=== PATIENT | female | born 1980 | race Caucasian/White ===

== ENCOUNTER 2023-10-27 16:24 | Observation (INO) ==
--- NOTE | 2023-10-27 17:51 | Emergency Department Note ---
History of Present Illness General Chief complaint: Skin Problem Stated complaint: ANGELY ANAL ABCESS, NEEDS DRAINED, RECTAL PAIN Time Seen by Provider: 10/27/23 17:50 History of Present Illness Maximum Pain Intensity: 7 NAME: HAYLEE RODRIGUEZ AGE: 43 SEX: F : 1980 ARRIVES VIA: Walk-In INFORMANT: Patient ED PROVIDER(S): ISRRAEL Belcher, Luís Tadeo DO The patient is a pleasant well-appearing 43-year-old female who arrives to the emergency department for evaluation of a perirectal abscess. She reports she was evaluated by her primary care provider in [place] at [facility] who placed her on oral antibiotics on Wednesday. She reports at that time it was a small nodular cyst, and since then has grown significantly. She reports she contacted them today for pain medication, and they called in hydrocodone. She states the hydrocodone is not helping, and the area has become very erythematous and tender to palpation. She reports a previous cyst in her right armpit, however states a significant history of infected cysts. She denies any difficulty with bowel or bladder, fever, abdominal pain, or drainage from the site. Home Medications Medication Instructions Recorded Confirmed Type alprazolam 0.25 mg tablet 0.25 mg PO DAILY PRN Anxiety 10/27/23 10/27/23 History bupropion HCl 300 mg 24 hr tablet, 300 mg PO QAM 10/27/23 10/27/23 History extended release hydrocodone 5 mg-acetaminophen 325 1 tab PO Q6 PRN Pain 10/27/23 10/27/23 History mg tablet sulfamethoxazole 800 1 tab PO BID 10/27/23 10/27/23 History mg-trimethoprim 160 mg tablet Allergies Allergy/AdvReac Type Severity Reaction Status Date / Time No Known Allergies Allergy Unverified 10/27/23 22:24 Past Med/Surg History Problem List (Updated 10/28/23 @ 00:34 by ISRRAEL Calderón) Depression with anxiety Perianal abscess (Acute) Social History Smoking Status: Former smoker Tobacco Type: Cigarettes Cigarettes Per Day: 5; Second Hand Exposure: No; Do You Dip or Chew Tobacco: No; Tobacco Cessation Education Requested by Patient: No Hx Alcohol Use: Yes Alcohol type: wine Hx Substance Use: No Preferred Language: Setswana Communication Ability: Effective Pressure Washer Required: No Beliefs That Will Affect Care: None Current Living Situation: Spouse and Other Current Living Situation Comment: 2 Children. Other Information That Helps Us Care for You: No Feels Safe at Home: Yes Safety Concerns: Feels Safe At This Time Assistive Devices: Contacts Physical Exam Vital Signs Vital Signs - 24 hr 10/27/23 16:40 10/27/23 19:05 10/27/23 21:20 Temperature 36.8 C Temperature Source Oral Pulse Rate 110 H Pulse Rate [Finger] 102 H 90 Respiratory Rate 19 20 20 Respiratory Effort / Characteristics Non-Labored Spontaneous Respiratory Depth Normal Blood Pressure 153/96 H Blood Pressure [Right Arm] Blood Pressure Mean 115 Blood Pressure Mean [Right Arm] Pulse Oximetry 99 99 99 Oxygen Delivery Method Room Air Room Air Room Air Sepsis Recent Fever Within 48 Hours No Sepsis New/Unexplained Change in Mental Status No Sepsis Action Taken by Nursing No Action Required 10/27/23 22:09 Temperature Temperature Source Pulse Rate Pulse Rate [Finger] 87 Respiratory Rate 16 Respiratory Effort / Characteristics Respiratory Depth Blood Pressure Blood Pressure [Right Arm] 130/81 Blood Pressure Mean Blood Pressure Mean [Right Arm] 97 Pulse Oximetry 98 Oxygen Delivery Method Room Air Sepsis Recent Fever Within 48 Hours Sepsis New/Unexplained Change in Mental Status Sepsis Action Taken by Nursing VITALS: Vitals are noted on the nurse's note and reviewed by myself. Vital signs stable. GENERAL: 43-year-old female, in no acute distress, nondiaphoretic, well- developed well-nourished. SKIN: There is a large area of erythema and edema present to he right gluteal fold extending towards the rectum and into the right labia. Induration present, no fluctuance. No drainage present. HEAD: Normocephalic atraumatic. HEART: Regular rate and rhythm without murmurs gallops or rubs. LUNGS: Clear to auscultation bilaterally without wheezes, rales or rhonchi. No retractions or accessory muscle use. ABDOMEN: Positive bowel sounds x 4. Soft, nontender, without masses or organomegaly. Mack sign negative. No guarding or rebound tenderness. MUSCULOSKELETAL: No muscle atrophy, erythema, or edema noted. Normal gait. Strength 5/5 throughout. NEURO: Patient was alert and oriented to person place and time. No focal neurological deficits. Course Administered Medications Ciprofloxacin (Cipro / D5w) 400 mg in 200 mls @ 100 mls/hr IV Q12H YOAV; Protocol Stop: 10/29/23 21:59 Last Admin: 10/27/23 23:43 Dose: 100 mls/hr Documented By: CYDNEY Oxycodone HCl (Oxycodone Hcl Ir 5 Mg Tab (Immediate Release)) 5 mg PO Q6H PRN PRN Reason: Pain Stop: 11/10/23 23:05 Last Admin: 10/27/23 23:42 Dose: 5 mg Documented By: CYDNEY Discontinued Medications Sodium Chloride (Nss) 1,000 mls @ 999 mls/hr IV .Q1H1M ONE Stop: 10/27/23 19:09 Last Infusion: 10/27/23 19:06 Dose: Infused Documented By: MARIA DEL CARMENW Admin: 10/27/23 18:14 Dose: 999 mls/hr Documented By: FLORECITA Metronidazole (Flagyl) 500 mg in 100 mls @ 100 mls/hr IV NOW STA; Protocol Stop: 10/27/23 22:54 Last Infusion: 10/27/23 23:20 Dose: Infused Documented By: Admin: 10/27/23 22:15 Dose: 100 mls/hr Documented By: SHREE Ioversol (Optiray 320 100ml) 93 ml IV ONCE ONE Stop: 10/27/23 19:10 Last Admin: 10/27/23 19:09 Dose: 93 ml Documented By: MARIANGEL Ketorolac Tromethamine (Ketorolac Tromethamine 15 Mg/Ml Vial) 10 mg IV NOW ONE Stop: 10/27/23 18:10 Last Admin: 10/27/23 18:14 Dose: 10 mg Documented By: FLORECITA Medical Decision Making Differential Diagnosis Cellulitis, abscess, MRSA infection, DVT, necrotizing fasciitis, dermatitis, drug eruption, allergic reaction, as well as other pathologies. Home Medications Current Medication List: was personally reviewed by me Laboratory Data Attestation: I reviewed the patient's lab results. No leukocytosis, stable hemoglobin and hematocrit, no significant electrolyte abnormalities. 10/27/23 18:18 10/27/23 18:18 Lab Results 10/27/23 Range/Units 18:18 WBC 10.34 (4.8-10.8) K/ul RBC 4.24 (4.20-5.40) M/uL Hgb 12.8 (12.0-16.0) g/dl Hct 37.2 (37.0-47.0) % MCV 87.7 (80.0-100.0) fL MCH 30.2 (25.0-34.0) pg MCHC 34.4 (32.0-36.0) g/dL RDW Std Deviation 39.1 (36.4-46.3) fL RDW Coeff of Zain 12.2 (11.5-14.5) % Plt Count 223 (130-400) K/uL MPV 10.6 (9.4-12.4) fL Immature Gran % (Auto) 0.3 % Neut % (Auto) 81.4 % Lymph % (Auto) 8.4 % [place] % (Auto) 7.0 % Eos % (Auto) 2.4 % Baso % (Auto) 0.5 % Neut # (Auto) 8.42 H (1.40-6.50) K/uL Lymph # (Auto) 0.87 L (1.20-3.40) K/uL [place] # (Auto) 0.72 H (0.11-0.59) K/uL Eos # (Auto) 0.25 (0.00-0.50) K/uL Baso # (Auto) 0.05 (0.00-0.20) K/uL Immature Gran # (Auto) 0.03 (0.01-0.20) K/uL Sodium 135 L (136-145) mmol/L Potassium 3.6 (3.5-5.1) mmol/L Chloride 105 (98-107) mmol/L Carbon Dioxide 22 (21-32) mmol/L Anion Gap 8 (3-11) BUN 15 (6-23) mg/dl Creatinine 0.94 (0.6-1.2) mg/dl Est Cr Clr Drug Dosing Not Reportable Est GFR ( Amer) 84.9 ml/min Est GFR (Non-Af Amer) 73.3 ml/min BUN/Creatinine Ratio 16.0 (10-20) Glucose 98 (70-99(Fasting)) mg/dl Calcium 9.5 (8.6-10.3) mg/dl Total Bilirubin 0.4 (0.2-1.0) mg/dl AST 17 (13-39) U/L ALT 14 (7-52) U/L Alkaline Phosphatase 72 (34-104) U/L Total Protein 6.8 (6.0-8.3) gm/dl Albumin 4.3 (3.4-5.0) gm/dl Globulin 2.5 (2.5-4.0) gm/dl Albumin/Globulin Ratio 1.7 (0.9-2) Imaging Data Radiologist's Impression: Pelvis CT 10/27/23 18:09 Exam(s): CT PELVIS With Contrast IV Amt: 93 ML OPTIRAY 320 EXAM: CT Pelvis With Intravenous Contrast CLINICAL HISTORY: Reason for exam: abscess. TECHNIQUE: Axial computed tomography images of the pelvis with intravenous contrast. CTDI is 24.68 mGy and DLP is 815.47 mGy-cm. Automated exposure control was utilized for the study. A dose lowering technique was utilized adhering to the principles of ALARA. CONTRAST: Patient received 93 ML OPTIRAY 320 of IV contrast COMPARISON: No relevant prior studies available. FINDINGS: Bladder: Unremarkable. Reproductive: IUD. Bones/joints: No acute fracture. Soft tissues: Phlegmon-developing abscess in the right perianal region near the gluteal crease, measures approximately 3 x 1.5 cm.. IMPRESSION: Phlegmon-developing abscess in the right perianal region near the gluteal crease, measures approximately 3 x 1.5 cm.. Electronically signed by: Enid Smith M.D. 10/27/23 21:07 PM Blood Pressure Blood Pressure Findings: Normal blood pressure MDM Narrative The patient is a pleasant well-appearing 43-year-old female who arrives to the emergency department for the above-stated complaint. Upon examination the patient has a large area of erythema/edema with induration present at the gluteal fold extending towards the rectum and into the right labia. The patient was placed on oral antibiotics from her primary care provider on Wednesday, she requested pain medication today because the area was increasing in size, and was becoming painful. She reports they recommended coming to the emergency department for evaluation of the area. A saline lock was established, CBC, CMP were obtained. CBC shows no leukocytosis, stable hemoglobin and hematocrit, CMP showed no electrolyte abnormalities. CT imaging of the abdomen and pelvis with IV contrast was obtained which showed a phlegmon-developing abscess in the right perianal region near the gluteal crease, measures approximately 3 x 1.5 cm. I spoke with Dr. Pauline Reynolds from general surgery who was able to visualize the CT imaging. I informed her I believe the patient has failed outpatient antibiotic treatment, and at this point requires IV antibiotic therapy. She agreed with my assessment, and agreed to consult the patient for possible intervention tomorrow. IV Cipro, as well as metronidazole was ordered for the patient. Case management was notified of the admission, they facilitated contact with the [facility] hospitalist group. Dr. Mariana Jerome agreed to accept the patient under her care. Please refer to her documentation for further patient treatment. Impression & Plan Perianal abscess Discharge Plan Visit Data Chief Complaint: Skin Problem Stated Complaint: ANGELY ANAL ABCESS, NEEDS DRAINED, RECTAL PAIN ED Provider: Luís Tadeo ED Midlevel Provider: Verena Child Discharge Problem: Perianal abscess Patient Disposition: Admitted As Inpatient Discharge Instructions Interventions: ED Discharge Assessment Last Done: 10/27/23 22:50
[2023-10-27] MEDS: KETOROLAC TROMETHAMINE 15 MG/ML VIAL IV ONE (18:14)
[2023-10-27] MEDS: SODIUM CHLORIDE 0.9% 1,000 ML IV ONE (18:14)
[2023-10-27 18:33] LABS: Basophils # (auto) 0.05 K/uL (0.00-0.20); Basophils % (auto) 0.5 %; Eosinophils # (auto) 0.25 K/uL (0.00-0.50); Eosinophils % (auto) 2.4 %; Hematocrit (blood only) 37.2 % (37.0-47.0); Hemoglobin 12.8 g/dl (12.0-16.0); Immature Granulocytes # (auto) 0.03 K/uL (0.01-0.20); Immature Granulocytes % (auto) 0.3 %; Lymphocytes # (auto) 0.87 K/uL (1.20-3.40); Lymphocytes % (auto) 8.4 %; Mean Corpuscular Hemoglobin 30.2 pg (25.0-34.0); Mean Corpuscular Hgb Conc 34.4 g/dL (32.0-36.0); Mean Corpuscular Volume 87.7 fL (80.0-100.0); Mean Platelet Volume 10.6 fL (9.4-12.4); Monocytes # (auto) 0.72 K/uL (0.11-0.59); Neutrophils # (auto) 8.42 K/uL (1.40-6.50); Neutrophils % (auto) 81.4 %; Platelet Count 223 K/uL (130-400); RDW Coefficient of Variation 12.2 % (11.5-14.5); RDW Standard Deviation 39.1 fL (36.4-46.3); Red Blood Count 4.24 M/uL (4.20-5.40); White Blood Count 10.34 K/ul (4.8-10.8)
[2023-10-27 18:50] LABS: Alanine Aminotransferase 14 U/L (7-52); Albumin Globulin Ratio 1.7 (0.9-2); Albumin Level 4.3 gm/dl (3.4-5.0); Alkaline Phosphatase 72 U/L (34-104); Anion Gap 8 (3-11); Aspartate Aminotransferase 17 U/L (13-39); Bilirubin,Total 0.4 mg/dl (0.2-1.0); Blood Urea Nitrogen 15 mg/dl (6-23); Calcium 9.5 mg/dl (8.6-10.3); Carbon Dioxide 22 mmol/L (21-32); Chloride 105 mmol/L (98-107); Est GFR (African American) 84.9 ml/min; Est GFR (Non-African American) 73.3 ml/min; Globulin 2.5 gm/dl (2.5-4.0); Glucose 98 mg/dl (70-99(Fasting)); Potassium 3.6 mmol/L (3.5-5.1); Sodium 135 mmol/L (136-145); Total Protein 6.8 gm/dl (6.0-8.3)
[2023-10-27] MEDS: OPTIRAY 320 100ml IV ONE (19:09)
--- NOTE | 2023-10-27 21:08 | CT Scan Report ---
Exam(s): CT PELVIS With Contrast IV Amt: 93 ML OPTIRAY 320 EXAM: CT Pelvis With Intravenous Contrast CLINICAL HISTORY: Reason for exam: abscess. TECHNIQUE: Axial computed tomography images of the pelvis with intravenous contrast. CTDI is 24.68 mGy and DLP is 815.47 mGy-cm. Automated exposure control was utilized for the study. A dose lowering technique was utilized adhering to the principles of ALARA. CONTRAST: Patient received 93 ML OPTIRAY 320 of IV contrast COMPARISON: No relevant prior studies available. FINDINGS: Bladder: Unremarkable. Reproductive: IUD. Bones/joints: No acute fracture. Soft tissues: Phlegmon-developing abscess in the right perianal region near the gluteal crease, measures approximately 3 x 1.5 cm.. IMPRESSION: Phlegmon-developing abscess in the right perianal region near the gluteal crease, measures approximately 3 x 1.5 cm.. Electronically signed by: Enid Smith M.D. 10/27/23 21:07 PM
[2023-10-27] MEDS ORDERED: CIPROFLOXACIN / D5W 400 MG/200 ML BAG IV STA (21:55)
[2023-10-27] MEDS: metroNIDAZOLE 500 MG/100 ML BAG IV STA (22:15)
--- NOTE | 2023-10-27 22:46 | History & Physical Report ---
Date of Service October 27, 2023 Assessment & Plan (1) Perianal abscess: (2) Depression with anxiety: Plan Pt is a 43 yo female with a past medical history of depression/anxiety who presents to the hospital on 10/26 for perianal abscess. #Perianal abscess - CT scan on admission with phlegmon-developing abscess in the right perianal region near the gluteal crease, measures approximately 3 x 1.5 cm - afebrile with wnl WBC count - continue metronidazole and cipro IV until drainage - general surg consulted for drainage of abscess - NPO pending surg consult recs #Depression #Anxiety - continue home bupropion DVT ppx: low risk, no chemical prophylaxis at this time Dispo: Medsurg (observation admission) History of Present Illness Chief Complaint: Perianal abscess Primary Care Provider: Estevan Alcala MD Pt is a 43 yo female with a past medical history of depression/anxiety who presents to the hospital on 10/26 for perianal abscess. Pt states that last Wednesday she noticed some soreness and redness of her perianal area on the right side and noticed what looked like a pimple there, so she thought she maybe had an ingrown hair. She states that it seemed to only get bigger and more tender, so on Wednesday of this week she went to the doctors and they gave her Bactrim. Once again, it seemed to get larger and more tender so she decided to be reevaluated today. Otherwise she states she is generally healthy. She states that she has never had surgery before or had anything like this in the past. No hx of VA or CVA, no hx of bleeding disorders or blood clots. No fevers over the last week and other than pain has felt well. Allergies Allergy/AdvReac Type Severity Reaction Status Date / Time No Known Allergies Allergy Unverified 10/27/23 22:24 Home Medications Medication Instructions Recorded Confirmed Type alprazolam 0.25 mg tablet 0.25 mg PO DAILY PRN Anxiety 10/27/23 10/27/23 History bupropion HCl 300 mg 24 hr tablet, 300 mg PO QAM 10/27/23 10/27/23 History extended release hydrocodone 5 mg-acetaminophen 325 1 tab PO Q6 PRN Pain 10/27/23 10/27/23 History mg tablet sulfamethoxazole 800 1 tab PO BID 10/27/23 10/27/23 History mg-trimethoprim 160 mg tablet Past Med/Surg History Problem List (Updated 10/27/23 @ 22:44 by Anyi José DO) Depression with anxiety Perianal abscess Social History Smoking Status: Former smoker Preferred Language: Haitian Feels Safe at Home: Yes Review of Systems Review of Systems: Constitutional: denies fever, chills, Cardio: denies chest pain, palpitations Resp: denies shortness of breath, GI: denies abdominal pain, nausea, vomiting Physical Exam Physical Exam: General: Alert and oriented, no acute distress, HEENT: Normocephalic, moist oral mucosa, Cardio: Regular rate and rhythm, no murmur, Resp: Lungs clear to auscultation b/l, no wheezes or rhonchi, GI: Soft and nontender, nondistended, bowel sounds active Skin: Warm, pink, dry, area of redness noted lateral to the anus on the right side with a fairly large area of tenderness and fluctuance, there is a small area with some abrasion of the skin but no drainage noted Results & Data Results & Data Vital Signs (Past 12 Hours) Vital Signs Temp Pulse Pulse Resp BP BP Pulse Ox 10/27/23 22:09 87 16 130/81 98 10/27/23 21:20 90 20 99 10/27/23 19:05 102 H 20 99 10/27/23 16:40 36.8 C 110 H 19 153/96 H 99 O2 Del Method 10/27/23 22:09 Room Air 10/27/23 21:20 Room Air 10/27/23 19:05 Room Air 10/27/23 16:40 Room Air Laboratory Results Laboratory Results WBC 10.34 K/ul (4.8-10.8) 10/27/23 18:18 RBC 4.24 M/uL (4.20-5.40) 10/27/23 18:18 Hgb 12.8 g/dl (12.0-16.0) 10/27/23 18:18 Hct 37.2 % (37.0-47.0) 10/27/23 18:18 MCV 87.7 fL (80.0-100.0) 10/27/23 18:18 MCH 30.2 pg (25.0-34.0) 10/27/23 18:18 MCHC 34.4 g/dL (32.0-36.0) 10/27/23 18:18 RDW Std Deviation 39.1 fL (36.4-46.3) 10/27/23 18:18 RDW Coeff of Zain 12.2 % (11.5-14.5) 10/27/23 18:18 Plt Count 223 K/uL (130-400) 10/27/23 18:18 MPV 10.6 fL (9.4-12.4) 10/27/23 18:18 Immature Gran % (Auto) 0.3 % 10/27/23 18:18 Neut % (Auto) 81.4 % 10/27/23 18:18 Lymph % (Auto) 8.4 % 10/27/23 18:18 [place] % (Auto) 7.0 % 10/27/23 18:18 Eos % (Auto) 2.4 % 10/27/23 18:18 Baso % (Auto) 0.5 % 10/27/23 18:18 Neut # (Auto) 8.42 K/uL (1.40-6.50) H 10/27/23 18:18 Lymph # (Auto) 0.87 K/uL (1.20-3.40) L 10/27/23 18:18 [place] # (Auto) 0.72 K/uL (0.11-0.59) H 10/27/23 18:18 Eos # (Auto) 0.25 K/uL (0.00-0.50) 10/27/23 18:18 Baso # (Auto) 0.05 K/uL (0.00-0.20) 10/27/23 18:18 Immature Gran # (Auto) 0.03 K/uL (0.01-0.20) 10/27/23 18:18 Sodium 135 mmol/L (136-145) L 10/27/23 18:18 Potassium 3.6 mmol/L (3.5-5.1) 10/27/23 18:18 Chloride 105 mmol/L (98-107) 10/27/23 18:18 Carbon Dioxide 22 mmol/L (21-32) 10/27/23 18:18 Anion Gap 8 (3-11) 10/27/23 18:18 BUN 15 mg/dl (6-23) 10/27/23 18:18 Creatinine 0.94 mg/dl (0.6-1.2) 10/27/23 18:18 Est Cr Clr Drug Dosing Not Reportable 10/27/23 18:18 Est GFR ( Amer) 84.9 ml/min 10/27/23 18:18 Est GFR (Non-Af Amer) 73.3 ml/min 10/27/23 18:18 BUN/Creatinine Ratio 16.0 (10-20) 10/27/23 18:18 Glucose 98 mg/dl (70-99(Fasting)) 10/27/23 18:18 Calcium 9.5 mg/dl (8.6-10.3) 10/27/23 18:18 Total Bilirubin 0.4 mg/dl (0.2-1.0) 10/27/23 18:18 AST 17 U/L (13-39) 10/27/23 18:18 ALT 14 U/L (7-52) 10/27/23 18:18 Alkaline Phosphatase 72 U/L (34-104) 10/27/23 18:18 Total Protein 6.8 gm/dl (6.0-8.3) 10/27/23 18:18 Albumin 4.3 gm/dl (3.4-5.0) 10/27/23 18:18 Globulin 2.5 gm/dl (2.5-4.0) 10/27/23 18:18 Albumin/Globulin Ratio 1.7 (0.9-2) 10/27/23 18:[address] 10/27/23 18:09 Exam(s): CT PELVIS With Contrast IV Amt: 93 ML OPTIRAY 320 EXAM: CT Pelvis With Intravenous Contrast CLINICAL HISTORY: Reason for exam: abscess. TECHNIQUE: Axial computed tomography images of the pelvis with intravenous contrast. CTDI is 24.68 mGy and DLP is 815.47 mGy-cm. Automated exposure control was utilized for the study. A dose lowering technique was utilized adhering to the principles of ALARA. CONTRAST: Patient received 93 ML OPTIRAY 320 of IV contrast COMPARISON: No relevant prior studies available. FINDINGS: Bladder: Unremarkable. Reproductive: IUD. Bones/joints: No acute fracture. Soft tissues: Phlegmon-developing abscess in the right perianal region near the gluteal crease, measures approximately 3 x 1.5 cm.. IMPRESSION: Phlegmon-developing abscess in the right perianal region near the gluteal crease, measures approximately 3 x 1.5 cm.. Electronically signed by: Enid Smith M.D. 10/27/23 21:07 PM Code Status & VTE Plan VTE Prophylaxis Plan VTE Prophylaxis will be ordered: No Supervising Physician Co-Signing Physician Notes Patient seen and examined, chart reviewed, case discussed with Dr. José and I agree with the assessment and plan as document above. In brief, Patient is a 43-year-old female with no significant past medical history presenting with perianal abscess. She noted last week that she had some soreness and a bump near her right perianal area. She thought it was an ingrown hair. She did see her PCP with this complaint and was prescribed Bactrim which she has been taking as prescribed. However, her symptoms progressively worsened. She denies fever, chills or systemic symptoms. No abdominal pain. On physical exam patient is afebrile, hemodynamically stable, no acute distress Skinright perianal area with warmth, redness, tenderness and induration. Small abrasion noted. No drainage. HEENTmoist mucous membranes, neck supple Heart+ S1, S2, regular, no murmur/rub/gallops Lungsequal air to bilaterally with no rales, rhonchi, wheezes Abdomenpositive bowel sounds, soft, nontender/nondistended Extremitieswarm, well-perfused with no clubbing, cyanosis, edema. Some tenderness of right inguinal lymph nodes Labs and images reviewed and largely unremarkable. She does have an elevated ne utrophil to lymphocyte ratio but no Leukocytosis CT abdomen findings added above Assessment/[id number] female presenting with perianal abscess. She is afebrile, hemodynamically stable And nontoxic Observation to medical overnight Continue IV antibiotics with ciprofloxacin and Flagyl General surgery consulted, possible OR in the a.m. for I&D Continue bupropion for diagnosis of depression/anxiety Remainder of plan as above Resident Activity Tracking Resident Involvement: Resident Care Provided Care Provided: [facility] Medicine
[2023-10-27] MEDS ORDERED: MELATONIN 3 MG TAB PO PRN ×2 (22:51→23:06)
[2023-10-27] MEDS ORDERED: ONDANSETRON INJ 2 MG/ML 2 ML VIAL IV PRN (23:06)
[2023-10-27] MEDS ORDERED: ACETAMINOPHEN 1,000 MG/100 ML VIAL IV PRN (23:06)
[2023-10-27] MEDS ORDERED: POLYETHYLENE (MIRALAX) 17 GM PACK PO PRN (23:06)
--- NOTE | 2023-10-27 23:30 | Billing Data ---
Date of Service October 27, 2023 Coding Level of Care Code 40413 INT INP/OBS CARE
[2023-10-27] MEDS: oxyCODONE HCL IR 5 MG TAB (IMMEDIATE RELEASE) PO PRN (23:42)
[2023-10-27] MEDS: CIPROFLOXACIN / D5W 400 MG/200 ML BAG IV SCH (23:43)
--- NOTE | 2023-10-28 06:45 | Hospitalist Progress Note ---
Date of Service October 28, 2023 Assessment & Plan (1) Perianal abscess: (2) Depression with anxiety: Plan Pt is a 43 yo female with a PMHx of depression/anxiety who presents to the hospital on 10/26 for perianal abscess. 1) Perianal abscess - CT scan on admission with phlegmon-developing abscess in the right perianal region near the gluteal crease, measures approximately 3 x 1.5 cm - afebrile, WBC WNL - continue metronidazole, 500 mg, IV, q12hrs and cipro, 400 mg, IV, q12hr until drainage - general surg consulted for drainage of abscess - NPO, pending surg --> S/P I&D of perianal abscess now - Perianal Abscess wound specimen: pos for gram+ cocci, Cx still pending - patient discharged on ciprofloxacin, 500 mg, PO, BID for 4 days and metronidazole, 500 mg, PO, TID for 4 days 2)Depression/Anxiety - continue home bupropion Admission and Anticipated Discharge Date Admission Date: October 27, 2023 Subjective Patient said the pain had started last Wed, looked like pimple, ingrown hair, and went to the doctor's on Wed and was prescribed Bactrim, but the pain got worse, along w/ swelling, increased erythema Review of Systems Constitutional: no fever, no chills and no fatigue Respiratory: no cough, no chest congestion and no dyspnea Cardiovascular: no chest pain and no palpitations Gastrointestinal: + diarrhea/loose stools (secondary to Tr ulance after banding of internal hemorrhoid on Wednesday) never received Dx besides hemorrhoids Neurologic: + tingling, + numbness and + paresthesia (burning in abscess area) Physical Exam Constitutional: WD/WN, vitals as above Results & Data Results & Data Vital Signs (Past 12 Hours) Vital Signs Temp Pulse Resp BP Pulse Ox O2 Del Method 10/27/23 23:00 36.6 C 80 17 132/83 100 Room Air 10/27/23 23:00 36.6 C 80 17 132/83 100 Room Air 10/27/23 22:09 87 16 130/81 98 Room Air 10/27/23 21:20 90 20 99 Room Air 10/27/23 19:05 102 H 20 99 Room Air
[2023-10-28 07:52] LABS: Basophils # (auto) 0.03 K/uL (0.00-0.20); Basophils % (auto) 0.4 %; Eosinophils # (auto) 0.32 K/uL (0.00-0.50); Hematocrit (blood only) 37.1 % (37.0-47.0); Hemoglobin 12.7 g/dl (12.0-16.0); Immature Granulocytes # (auto) 0.04 K/uL (0.01-0.20); Immature Granulocytes % (auto) 0.5 %; Lymphocytes # (auto) 0.69 K/uL (1.20-3.40); Lymphocytes % (auto) 8.5 %; Mean Corpuscular Hemoglobin 30.2 pg (25.0-34.0); Mean Corpuscular Hgb Conc 34.2 g/dL (32.0-36.0); Mean Corpuscular Volume 88.3 fL (80.0-100.0); Mean Platelet Volume 10.6 fL (9.4-12.4); Monocytes % (auto) 7.4 %; Neutrophils # (auto) 6.41 K/uL (1.40-6.50); Neutrophils % (auto) 79.2 %; Platelet Count 224 K/uL (130-400); RDW Standard Deviation 38.7 fL (36.4-46.3); White Blood Count 8.09 K/ul (4.8-10.8)
[2023-10-28 08:16] LABS: BUN Creatinine Ratio 10.5 (10-20); Calcium 9.2 mg/dl (8.6-10.3); Creatinine Clr Calc Pharmacy 90.9 ml/min; Est GFR (African American) 109.8 ml/min; Est GFR (Non-African American) 94.7 ml/min
[2023-10-28] MEDS ORDERED: fentaNYL citrate PF 100 MCG/2 ML VIAL ONE (10:06)
[2023-10-28] MEDS ORDERED: MIDAZOLAM HCL 1 MG/ML 2ML VIAL ONE (10:06)
[2023-10-28] MEDS: LIDOCAINE 1% LOCAL 20 ML VIAL SQ ONE (10:09)
[2023-10-28] MEDS ORDERED: ONDANSETRON INJ 2 MG/ML 2 ML VIAL ONE (10:11)
[2023-10-28] MEDS ORDERED: PROPOFOL IV EMULSION 10 MG/ML 20 ML VIAL IV ONE (10:11)
[2023-10-28] MEDS: metroNIDAZOLE 500 MG/100 ML BAG IV SCH (10:11)
[2023-10-28] MEDS ORDERED: DEXAMETHASONE SOD INJ 4 MG/ML VIAL ONE (10:11)
[2023-10-28] MEDS ORDERED: LIDOCAINE 2% 2 ML VIAL/AMP(20MG/ML) INFIL ONE (10:11)
--- NOTE | 2023-10-28 10:13 | Surgery Consultation ---
Date of Consultation October 28, 2023 Assessment & Plan (1) Perianal abscess: This is a 43yF with a PMH of depression/anxiety who presents to the [facility] ED on 10/27/23 with complaints of perianal pain. Patient states she felt the area of pain develop last wednesday. She let it go thinking it was an ingrown hair that would self resolve, but the area got worse. She saw a Dr on Wednesday who prescribed her some Bactrim, but the area of concern continued to grow in size and pain became more severe prompting her to come into the ER. A CT pelvis was obtained that revealed a phlegmon-developing abscess in the right perianal region near the gluteal crease, measures approximately 3 x 1.5 cm. She states she has had boil/abscesses before in the armpit. She denies any fevers/chills, just significant pain. She does state the area feels slightly better this AM and softer. Todays labs show WBC 8, Hbg 10, Cr 0.7. Vitals are stable and patient's afebrile. On exam there is a + perianal abscess in the R gluteal fold/labial region. tender to palpation, fluctuant, with erythema and spot of superficial necrosis noted. options discussed with patient regarding bedside I&D with local vs. the OR for I&D of the area. Patient opts for surgical intervention in the OR to be more comfortable. Consent has been obtained and we will proceed with OR later this AM. Continue IV abx while in house. Possibility of discharge to home later today vs. tomorrow pending patient's preference. Will place wound care instructions in d/c summary. Supervising Physician Co-Signing Physician Notes The patient will be taken to the operating room today for incision and drainage of a right perirectal abscess The details of the procedure have been explained to her including the risks and benefits. Consent has been obtained History of Present Illness Attending Physician: Austin Hirsch DO History of Present Illness This is a 43yF with a PMH of depression/anxiety who presents to the [facility] ED on 10/27/23 with complaints of perianal pain. Patient states she felt the area of pain develop last wednesday. She let it go thinking it was an ingrown hair that would self resolve, but the area got worse. She saw a Dr on Wednesday who prescribed her some Bactrim, but the area of concern continued to grow in size and pain became more severe prompting her to come into the ER. A CT pelvis was obtained that revealed a phlegmon-developing abscess in the right perianal region near the gluteal crease, measures approximately 3 x 1.5 cm. She states she has had boil/abscesses before in the armpit. She denies any fevers/chills, just significant pain. She does state the area feels slightly better this AM and softer. She has never had any of these area's cultured in the past. Allergies Allergy/AdvReac Type Severity Reaction Status Date / Time No Known Allergies Allergy Unverified 10/27/23 22:24 Home Medications Medication Instructions Recorded Confirmed Type alprazolam 0.25 mg tablet 0.25 mg PO DAILY PRN Anxiety 10/27/23 10/27/23 History bupropion HCl 300 mg 24 hr tablet, 300 mg PO QAM 10/27/23 10/27/23 History extended release hydrocodone 5 mg-acetaminophen 325 1 tab PO Q6 PRN Pain 10/27/23 10/27/23 History mg tablet sulfamethoxazole 800 1 tab PO BID 10/27/23 10/27/23 History mg-trimethoprim 160 mg tablet Patient History Social History Smoking Status: Former smoker Tobacco Type: Cigarettes Cigarettes Per Day: 5; Second Hand Exposure: No; Do You Dip or Chew Tobacco: No; Tobacco Cessation Education Requested by Patient: No Hx Alcohol Use: Yes Alcohol type: wine Hx Substance Use: No Preferred Language: Senegalese Communication Ability: Effective Air/Ocean Export Clerk Required: No Beliefs That Will Affect Care: None Current Living Situation: Spouse and Other Current Living Situation Comment: 2 Children. Other Information That Helps Us Care for You: No Feels Safe at Home: Yes Safety Concerns: Feels Safe At This Time Assistive Devices: Contacts Review of Systems Constitutional: no fever and no chills Respiratory: no dyspnea Cardiovascular: no chest pain Gastrointestinal: no abdominal pain Integumentary: + pain and swelling in perianal region, no drainage Physical Exam Physical Exam: awake/alert, no distress Constitutional: well developed and well nourished; no acute distress Respiratory: normal respiratory effort Cardiovascular: Rate/Rhythm: regular rate Skin: + perianal abscess in the R gluteal fold /labial region. tender to palpation. erythema and spot of superficial necrosis noted. + fluctuance Results & Data Vital Signs (Past 12 Hours) Vital Signs Temp Pulse Pulse Resp BP BP Pulse Ox 10/28/23 07:38 98.1 F 85 14 122/81 100 10/27/23 23:00 97.9 F 80 17 132/83 100 10/27/23 23:00 97.9 F 80 17 132/83 100 10/27/23 22:09 87 16 130/81 98 O2 Del Method 10/28/23 07:38 Room Air 10/27/23 23:00 Room Air 10/27/23 23:00 Room Air 10/27/23 22:09 Room Air Diagnostic Findings Exam(s): CT PELVIS With Contrast IV Amt: 93 ML OPTIRAY 320 EXAM: CT Pelvis With Intravenous Contrast CLINICAL HISTORY: Reason for exam: abscess. TECHNIQUE: Axial computed tomography images of the pelvis with intravenous contrast. CTDI is 24.68 mGy and DLP is 815.47 mGy-cm. Automated exposure control was utilized for the study. A dose lowering technique was utilized adhering to the principles of ALARA. CONTRAST: Patient received 93 ML OPTIRAY 320 of IV contrast COMPARISON: No relevant prior studies available. FINDINGS: Bladder: Unremarkable. Reproductive: IUD. Bones/joints: No acute fracture. Soft tissues: Phlegmon-developing abscess in the right perianal region near the gluteal crease, measures approximately 3 x 1.5 cm.. IMPRESSION: Phlegmon-developing abscess in the right perianal region near the gluteal crease, measures approximately 3 x 1.5 cm.. Electronically signed by: Enid Smith M.D. 10/27/23 21:07 PM PG Care Time/CCT Total # of Minutes Spent Total Time Spent with Patient: Total time spent is greater than 50% in coordination of care (as documented) at patient's floor/unit and/or counseling patient: Coding Level of Care Code 46646 IN/OBS CONSULT LVL 3,45M Diagnoses Perianal abscess K61.0
--- NOTE | 2023-10-28 10:15 | Anesthesiology Consultation ---
Date of Service October 28, 2023 Assessment & Plan Chart Review Chart Review: Acceptable Risk for Surgery and Patient NOT seen in Pre Admission Testing Consults Requested none ASA ASA1 Proposed Anesthesia Anesthesia Type: General Regional Laterality: Left Risk / Benefits Reviewed With: PT / POA / Parent / Guardian, Accepts Plan and Informed Consent Obtained History Surgery Operation Date: 10/28/23 08:15 Proposed Procedures p Incision and Drainage Perianal Abscess - Amisha Parker DO Height/Weight Height: 5 ft 7 in Weight: 71.5 kg Allergies Allergy/AdvReac Type Severity Reaction Status Date / Time venlafaxine [From Effexor] AdvReac Dizziness Verified 10/28/23 10:49 Medications Home Medications Medication Instructions Recorded Confirmed Last Taken alprazolam 0.25 mg tablet 0.25 mg PO DAILY PRN Anxiety 10/27/23 10/27/23 Unknown bupropion HCl 300 mg 24 hr tablet, 300 mg PO QAM 10/27/23 10/27/23 10/26/23 extended release hydrocodone 5 mg-acetaminophen 325 1 tab PO Q6 PRN Pain 10/27/23 10/27/23 10/27/23 mg tablet sulfamethoxazole 800 1 tab PO BID 10/27/23 10/27/23 10/27/23 mg-trimethoprim 160 mg tablet Active Medications Generic Name Dose Route Start Last Admin Trade Name Freq PRN Reason Stop Dose Admin Metronidazole 500 mg in 100 mls @ 100 mls/hr 10/28/23 10:00 10/28/23 10:11 Flagyl IV 10/30/23 09:59 100 mls/hr Q12H YOAV Administration Protocol Ciprofloxacin 400 mg in 200 mls @ 100 mls/hr 10/27/23 22:00 10/28/23 10:10 Cipro / D5w IV 10/29/23 21:59 100 mls/hr Q12H YOAV Administration Protocol Lactated Ringer's 1,000 mls @ 15 mls/hr 10/28/23 10:45 10/28/23 10:42 Lr IV 11/27/23 10:44 15 mls/hr .Q24H YOAV Administration Oxycodone HCl 5 mg 10/27/23 23:06 10/28/23 05:43 Oxycodone Hcl Ir 5 Mg Tab (Immediate Release) PO 11/10/23 23:05 5 mg Q6H PRN Administration Pain NPO Date Last Intake of Fluids: 10/27/23 Time Last Intake of Fluids: 23:59 Date Last Intake of Solids: 10/27/23 Time Last Intake of Solids: 23:59 Exercise / Class Metabolic Activity II 4-5 Yardwork/Stairs/Walk up hill Past Anesthesia History No Hx of Anesthesia Complications and No Family Hx of Anesthesia Complications History of PONV No Hx of PONV and No Hx of Motion Sickness Social History Smoking Status: Former smoker tobacco type: cigars Smoking cigarettes per day: 5 Do You Dip or Chew Tobacco: No Hx Alcohol Use: Yes Alcohol type: wine alcohol intake frequency: holidays/special occasions only Hx Substance Use: No Review of Systems ROS Unobtainable: All systems reviewed & are unremarkable except as noted in HPI & below Physical Exam Vital Signs Last Vital Signs Temp 36.7 C 10/28/23 07:38 Pulse 85 10/28/23 07:38 Resp 14 10/28/23 07:38 BP 122/81 10/28/23 07:38 Pulse Ox 100 10/28/23 07:38 O2 Del Method Room Air 10/28/23 07:38 Constitutional no acute distress ENMT Mouth: no TMJ abnormality Thyromental Distance: > or= 3.5 Finger Breadths Mallampati Class: II Neck normal visual inspection and trachea midline; neck extension not limited Respiratory normal respiratory effort Auscultation: lungs clear to auscultation bilaterally Cardiovascular Rate/Rhythm: regular rate and regular rhythm Heart Sounds: no murmur Musculoskeletal Spine: normal cervical ROM Extremities: full ROM of extremities Neurologic moves all extremities Psychiatric Orientation: alert and oriented x 3 Testing Laboratory Results 10/28/23 07:09 10/28/23 07:09
[2023-10-28] MEDS: LACTATED RINGER'S 1,000 ML IV SCH (10:42)
[2023-10-28] MEDS ORDERED: fentaNYL citrate PF 100 MCG/2 ML VIAL IV PRN (10:54)
[2023-10-28] MEDS ORDERED: ePHEDrine sulfate 50 MG/ML AMP IV PRN (10:54)
[2023-10-28] MEDS ORDERED: ONDANSETRON INJ 2 MG/ML 2 ML VIAL IV PRN (10:54)
[2023-10-28] MEDS ORDERED: ATROPINE SULFATE 0.1 MG/ML 10ML SYR IV PRN (10:54)
[2023-10-28] MEDS ORDERED: KETOROLAC 30 MG/ML VIAL ONE (11:44)
[2023-10-28] MEDS: BUPIVACAINE/EPINEPHRINE 0.5% MPF 1:200,000 30 ML VIAL ONE (12:03)
--- NOTE | 2023-10-28 12:14 | Operative Report ---
PG Post Operative Report Pre & Post Diagnosis Operation Date: 10/28/23 08:15 Pre-Op Diagnosis: Perianal Abscess Post-Op Diagnosis: Perianal Abscess I identified the patient and participated in the time-out.: Yes Procedure Operation Date: 10/28/23 08:15 Actual Procedures p Incision and Drainage Perianal Abscess(Right) - Amisha Parker DO Surgeon Amisha Parker DO Tire Mold Tester RON Laboy Estimated Blood Loss 1 Findings See Below Copious amount of purulent fluid A culture was sent Specimens None Anesthesia Type General Complications None Indications Painful perianal abscess Description of Procedure Patient was brought back to the operating room placed on the operating room table in lithotomy position. She was connected to cardiac and oxygen monitoring, supplemental O2 was provided. SCDs were applied to bilateral lower extremities. The patient was administered general anesthesia and a secure airway was established. The perineal area was prepped and draped in typical sterile fashion a timeout was conducted. Local anesthetic was injected into the skin and subcutaneous tissues at the area of fluctuance and necrotic tissue right perianal region. A cruciate incision was made. Upon incision, the BX amount of purulent drainage was evacuated. A culture was obtained and sent to the microbiology lab for analysis. Black necrotic tissue around the edges of the cruciate were excised. The wound was copiously irrigated with saline and dried. The area was gently packed with 1/4 inch plain packing. The deepest wound depth is roughly 1.5-2cm. The wound was dressed with dry sterile gauze covered with ABD and secure in place with tape. The patient tolerated the procedure well. She was awakened from anesthesia, secure airway was removed and she was transferred to recovery in stable condition. I attest to the content of the Intraoperative Record and any orders documented therein. Any exceptions are noted below.
[2023-10-28] MEDS: buPROPion XL 300 MG TABCR PO SCH (13:03)
--- NOTE | 2023-10-28 14:23 | Anesthesiology Progress Note ---
Date of Service October 28, 2023 Anesthesia Post Procedure Vital Signs Vital Signs: Temp Pulse Pulse Pulse Pulse Resp BP 10/28/23 14:00 36.6 C 80 14 10/28/23 13:30 36.7 C 75 14 10/28/23 13:00 36.7 C 87 16 10/28/23 12:40 36.6 C 76 15 10/28/23 12:30 81 14 10/28/23 12:20 93 H 17 10/28/23 12:10 36.3 C L 72 15 10/28/23 10:35 36.8 C 97 H 20 10/28/23 07:38 36.7 C 85 14 10/27/23 23:00 36.6 C 80 17 10/27/23 23:00 36.6 C 80 17 10/27/23 22:09 87 16 10/27/23 21:20 90 20 10/27/23 19:05 102 H 20 10/27/23 16:40 36.8 C 110 H 19 153/96 H BP BP Pulse Ox O2 Del Method O2 Flow Rate 10/28/23 14:00 109/72 98 Room Air 10/28/23 13:30 117/78 97 Room Air 10/28/23 13:00 116/73 98 Room Air 10/28/23 12:40 112/73 96 Room Air 10/28/23 12:30 115/80 96 Room Air 10/28/23 12:20 118/77 98 Oxymask 2 10/28/23 12:10 104/63 97 Oxymask 4 10/28/23 10:35 140/86 100 Room Air 10/28/23 07:38 122/81 100 Room Air 10/27/23 23:00 132/83 100 Room Air 10/27/23 23:00 132/83 100 Room Air 10/27/23 22:09 130/81 98 Room Air 10/27/23 21:20 99 Room Air 10/27/23 19:05 99 Room Air 10/27/23 16:40 99 Room Air Pain Intensity Bilateral Groin: Pain Intensity: 7 Transfer of Care Handoff Completed per policy Notes Mental Status: alert / awake / arousable Patient Amnestic to Procedure: Yes Nausea / Vomiting: adequately controlled Pain: adequately controlled Airway Patency, RR, SpO2: stable & adequate BP & HR: stable & adequate Hydration State: stable & adequate Anesthetic Complications: no major complications apparent and Pt Satisfied with anesthetic care
--- NOTE | 2023-10-28 18:40 | Discharge Summary ---
Discharge Summary Date of Service October 28, 2023 Principal Dx & Hospital Course #1 = Principal Diagnosis (1) Perianal abscess: (2) Depression with anxiety: Plan Pt is a 43 yo female with a PMHx of depression/anxiety who presents to the hospital on 10/26 for perianal abscess. 1) Perianal abscess - CT scan on admission with phlegmon-developing abscess in the right perianal region near the gluteal crease, measures approximately 3 x 1.5 cm - seen by surgery who promptly took her to the OR for I&D. post op pt doing well/pain controlled, felt well enough to get home - patient discharged on ciprofloxacin, 500 mg, PO, BID for 4 days and metronidazole, 500 mg, PO, TID for 4 days - outpt f/u w surgery next week 2)Depression/Anxiety - continue home bupropion Notes For Next Care Provider Medication Changes From Visit cipro/flagyl Admission HPI Per Admitting Provider Pt is a 43 yo female with a past medical history of depression/anxiety who presents to the hospital on 10/26 for perianal abscess. Pt states that last Wednesday she noticed some soreness and redness of her perianal area on the right side and noticed what looked like a pimple there, so she thought she maybe had an ingrown hair. She states that it seemed to only get bigger and more tender, so on Wednesday of this week she went to the doctors and they gave her Bactrim. Once again, it seemed to get larger and more tender so she decided to be reevaluated today. Otherwise she states she is generally healthy. She states that she has never had surgery before or had anything like this in the past. No hx of WI or CVA, no hx of bleeding disorders or blood clots. No fevers over the last week and other than pain has felt well. Updated Medication List Medication Instructions Recorded Confirmed Type alprazolam 0.25 mg tablet 0.25 mg PO DAILY PRN Anxiety 10/27/23 10/27/23 History bupropion HCl 300 mg 24 hr tablet, 300 mg PO QAM 10/27/23 10/27/23 History extended release hydrocodone 5 mg-acetaminophen 325 1 tab PO Q6 PRN Pain 10/27/23 10/27/23 History mg tablet sulfamethoxazole 800 1 tab PO BID 10/27/23 10/27/23 History mg-trimethoprim 160 mg tablet ciprofloxacin HCl 500 mg tablet 500 mg PO Q12H #8 tabs 10/28/23 Rx metronidazole 500 mg tablet 500 mg PO TID #12 tabs 10/28/23 Rx Additional Medication Comments cipro/flagyl Hospital Stay Data Consultations 10/27/23 22:03 ED Decision to Admit Stat 10/27/23 23:22 Consult General Surgery Routine Procedures Performed Operation Date: 10/28/23 08:15 Actual Procedures p Incision and Drainage Perianal Abscess(Right) - Amisha Parker DO Diagnostic Imagining Performed 10/27/23 18:09 CT pelvis w/IV con only Stat Pending Results Patient Have Any Pending Studies at Discharge: Yes Discharge Instructions Given to Patient (Per Discharging Provider) Take warm sitz baths 3-4x/daily to help cleanse the area and for comfort Keep a dry dressing in your undergarments and change daily and as needed to help collect any drainage. This may consist of a typical pad or dry 4x4 gauze and ABD pad and tape. Keep dressing in place with either a small amount of tape or undergarments. Keep the packing in until tomorrow 10/28 if it falls out on its own you may keep it out. Follow-up appointments: We have requested a follow-up appointment with your primary care physician within one week of discharge and you should also follow up with general surgry. Please call their office if you do not hear from them. Keep all your follow-up appointments as already scheduled. If you cannot make an appointment, notify your provider. Medications: Your medication list has been reviewed and reconciled upon discharge to ensure accuracy and continuity of care. An updated list of all your medications is included with your hospital discharge paperwork. Please review this list closely, and make note of any changes. We sent a new medication called ciprofloxacin to your pharmacy. Take ciprofloxacin, 500 mg/one tablet, twice a day, for 4 more days. We sent a new medication called metronidazole to your pharmacy. Take metronidazole 500 mg/one tablet, three times a day, for 4 more days. We recommend taking a probiotic with these antibiotics, most easily picked up [id number] at your pharmacy. Take a probiotic daily while taking the antibiotics. Take your medications as instructed; do not skip a dose of your medicines. Make sure all of your doctors know every medicine you are taking (including [id number] medicines, vitamins, and supplements). Call your primary care provider before taking any new medicines (including hcxh-[id number] medicines, vitamins, and supplements), because some of these may interact with your current medications, or may make your symptoms worse. Tell your primary care provider if you cannot afford your medications. CONTACT YOUR PRIMARY CARE PROVIDER if you experience any of the following: fevers, chills, recurrent redness and swelling of the surgical site other skin lesions possibly concerning for abscesses, fistulas, Difficulty following your treatment plan, or difficulty taking medications CALL 911 OR GO TO THE EMERGENCY DEPARTMENT if you experience any of the following: Sudden, severe abdominal pain or nausea/vomiting Severe chest pain, or chest pain that radiates (moves) to your jaw or arm Sudden, severe shortness of breath or difficulty breathing Thank you for allowing us to participate in your care Total Time Total Time Spent Total Time Spent (In Minutes): <30
--- NOTE | 2023-10-28 18:43 | Billing Data ---
Date of Service October 28, 2023 Coding Level of Care Code 73426 IN/OBS DISCH 30 MIN/LESS
== END 2023-10-28 17:43 | disposition home or self-care (01) | DRG 395 ==
LOC: ED 16:24 → 3E 22:27 → SUATTDRO 22:27 → INTOOBSV 22:27 → 3E 22:50